=== PATIENT | female | born 1955 | race Caucasian/White ===

== ENCOUNTER → 2018-02-28 17:19 | Outpatient (CLI) | payer MEDICAID | END | disposition home or self-care (01) | LOC: D.MAMMO 15:30 | DX: Z12.31 Encounter for screening mammogram for malignant neoplasm of breast (principal) ==

== ENCOUNTER → 2018-11-06 08:42 | Outpatient (CLI) | payer MEDICAID | END | disposition home or self-care (01) | LOC: D.HCCARDIO 08:42 | DX: R06.02 Shortness of breath (principal) ==

== ENCOUNTER → 2018-12-02 08:02 | Outpatient (CLI) | payer MEDICAID | END | disposition home or self-care (01) | LOC: D.US 08:00 | PROVIDERS: ATTEND Internal Medicine Gastroenterology | DX: R10.9 Unspecified abdominal pain (principal) ==

== ENCOUNTER → 2018-12-15 09:25 | Outpatient (CLI) | payer MEDICAID | END | disposition home or self-care (01) | LOC: D.NM 09:25 | PROVIDERS: ATTEND Internal Medicine Gastroenterology | DX: R10.13 Epigastric pain (principal); K21.9 Gastro-esophageal reflux disease without esophagitis; R14.3 Flatulence; R14.0 Abdominal distension (gaseous) ==

== ENCOUNTER → 2019-04-29 09:41 | Outpatient (CLI) | payer MEDICAID | END | disposition home or self-care (01) | LOC: D.RAD 09:41 | PROVIDERS: ATTEND Internal Medicine Gastroenterology | DX: R13.10 Dysphagia, unspecified (principal); R19.4 Change in bowel habit ==

== ENCOUNTER 2019-06-18 09:41 | Outpatient (CLI) | payer MEDICAID | END 2019-06-18 10:55 | disposition home or self-care (01) | LOC: D.OPS 09:41 | PROVIDERS: ATTEND Surgery | DX: K21.9 Gastro-esophageal reflux disease without esophagitis (principal) ==

== ENCOUNTER → 2019-07-24 08:48 | Outpatient (CLI) | payer MEDICAID ==
[~2019-07-24 08:48] MED LIST: ACETAM; AMBIEN10 MG PO; CYCLOBENZAPRINE10 MG PO; EFFEXOR XR150 MG PO; FLAGYL500 MG; HYDROCOD; HYDROCODON-ACE1 EAC7 PO; LIPITOR10 MG PO; NAPROXEN250 MG PO; PROTONIX20 MG PO; PROTONIX40 MG PO; TOPROL XL25 MG PO; ZOFRAN4 MG PO; [UNRECOGNIZED DRUG - OTHER]; [UNRECOGNIZED DRUG - OTHER]
[2019-08-24 10:54] VITALS: BMI 34.4
== END | disposition home or self-care (01) ==
LOC: D.MRI 08:48
PROVIDERS: ATTEND Internal Medicine Gastroenterology
DX: K76.9 Liver disease, unspecified (principal); Z51.89 Encounter for other specified aftercare

== ENCOUNTER 2019-08-04 09:31 | Day surgery (SDC) | payer MEDICAID ==
[~2019-08-04] VITALS: Ht 162.6 cm; Wt 91.8 kg
[~2019-08-04 09:31] MED LIST changes: -HYDROCODON-ACE1 EAC7 PO; -PROTONIX20 MG PO
[2019-08-04] MEDS ORDERED: PROTONIX20 MG PO (10:10)
[2019-08-04 10:17] VITALS: BP 130/70; Ht 162.6 cm; Wt 91.8 kg
[2019-08-04 10:17] LABS: HEMATOCRIT 43.4 % (36.0-48.0); HEMOGLOBIN 14.3 g/dL (12-16); MCH 31.8 pg (26.0-34.0); MCHC 32.9 g/dL (31.0-37.0); MCV 96.7 fL (80.0-100.0); MEAN PLATELET VOLUME 9.7 fL (7.4-10.4); RBC 4.49 10x6/uL (4.00-5.40); RDW 13.1 % (11.5-14.5)
--- NOTE | 2019-08-04 11:15 | NUR ---
DR SOSA NOTIFIED AND REVIEWED PT'S BEHAVIOR AND ASSESSMENT RESULTS. PT IS A LOW RISK PER DR. SOSA. DR SOSA STATED TO GIVE RESOURCES TO PT AT TIME OF DISCHARGE. NO FURTHER ORDERS AT THIS TIME. RESOURCES REVIEWED WITH PT AND SHE VERBALIZED UNDERSTANDING. PT ADAMENTLY DENIES SUICIDAL THOUGHTS AND IS ABLE TO STATE MULTIPLE REASONS FOR LIVING. PT HAS A POSITIVE OUTLOOK FOR THE FUTURE.
--- NOTE | 2019-08-04 14:54 | NUR ---
1345 VSS. IV DC'D. CATHETER TIP INTACT. NO BLEEDING AT SITE. BANDAID APPLIED. 1400 PT WAITING TO TALK TO DR RONDON BEFORE DISCHARGE HOME. DISCHARGE INSTRUCTIONS GIVEN. PT VOICES UNDERSTANDING OF INSTRUCTIONS AND TO TAKE HER ANTIBIOTIC PRESCRIBED. PRESCRIPTION IN DISCHARGE PACKET
--- NOTE | 2019-08-05 15:04 | OP ---
PATIENT NAME: ALBARO FERRIS MEDICAL RECORD: [id number] :55 LOCATION:D.OPS ADMISSION DATE: SURGEON: JAMES RONDON MD DATE OF OPERATION: 08/04/2019 PREOPERATIVE DIAGNOSIS: Multiple colon polyps, tattooed. POSTOPERATIVE DIAGNOSIS: Two colon polyps, tattooed. PROCEDURES: 1. Total colonoscopy to cecum. 2. Colonic polypectomies times 2. SURGEON: James Rondon MD ADMINISTRATION MANAGER: None. BLOOD LOSS: Minimal. ANESTHESIA: IV sedation. COMPLICATIONS: None. The risks, possible complications and alternatives to the procedure were explained to the patient. She elects to proceed. Discussion specifically included, but was not limited to, bleeding requiring emergency reoperation and infection. ENDOSCOPIC COURSE: The patient was conveyed to endoscopy suite electively on 08/04/2019. IV sedation was induced by the anesthesia staff. The patient was placed in the Patino position. A digital rectal examination was performed. A colonoscope was inserted through the anus. It was easily advanced to the cecum. Upon withdrawal, I irrigated and aspirated extensively. Normal imaging as well as narrow band imaging were utilized. Two polyps were noted. These were each marked by a tattoo. Cold endoscopic biopsies were obtained. The remaining polypoid tissue was then ablated with the argon plasma hand drawer in. A retroflexed view was obtained in the rectum. The pullback was greater than a 15-minute pullback. The patient was then conveyed back to the post-endoscopy area. I will see her in the office in 2-3 weeks. I will plan for her next colonoscopy to take place in 2 years. TRANSINT:[id number] Voice Confirmation ID: [id number] DOCUMENT ID: [id number] JAMES RONDON MD at 1504 CC: [id number] DICTATION DATE: 08/04/19 1409 NUCLEAR ENGINEERING TECHNICIAN: 08/04/19 2324 [facility] 08/04/[address] [address]
== END 2019-08-04 14:17 | disposition home or self-care (01) ==
LOC: D.OPS 09:31
PROVIDERS: Anesthesiology; ATTEND Surgery
DX: K63.5 Polyp of colon (principal)

== ENCOUNTER 2019-08-24 05:28 | Inpatient (IN) | payer MEDICAID ==
[2019-08-24] VITALS (11 sets, daily range): BP systolic 144–180; BP diastolic 62–77; Ht 162.6 cm; Wt 90.9 kg
[~2019-08-24] VITALS: Ht 162.6 cm; Wt 90.9 kg
[~2019-08-24 05:28] MED LIST changes: +PROTONIX20 MG PO
[2019-08-24 06:54] LABS: HEMATOCRIT 42.1 % (36.0-48.0); HEMOGLOBIN 13.9 g/dL (12-16); MCH 31.9 pg (26.0-34.0); MCV 96.6 fL (80.0-100.0); MEAN PLATELET VOLUME 9.9 fL (7.4-10.4); RBC 4.36 10x6/uL (4.00-5.40); RDW 13.2 % (11.5-14.5)
--- NOTE | 2019-08-24 10:50 | NUR ---
RECEIVED TO ROOM 2228 VIA BED FROM PACU. A/O X3. FAMILY IN ROOM. SKIN INTACT WITHOUT REDNESS EXCEPT 6 SMALL INSERTION SITES TO ABDOMEN WHICH ARE CLEAN AND DRY. DENIES NEEDS. BP IS UP SLIGHTLY. WILL MONITOR.
--- NOTE | 2019-08-24 12:10 | NUR ---
C/O PAIN IN UPPER CHEST AREA. VSS. COLOR AND SKIN WNL. PROBABLY GAS FROM SURGERY. WILL MONITOR.
--- NOTE | 2019-08-24 14:14 | NUR ---
AMBULATED 50 FEET WITH MIN ASSIST OF ONE. DID VERY WELL, NO NAUSEA WITH ACTIVITY OR EATING A FEW BITES OF PUDDING. REPOSITIONED IN BED FOR COMFORT. DENIES NEEDS.
--- NOTE | 2019-08-24 18:37 | NUR ---
AMBULATED OVER 200 FEET WITH SBA. SAT ON TIOLET AFTER WALKING BUT DIDN'T URINATE. WILL MONITOR. NO C/O INCREASED PAIN OF NAUSEA WITH FOOD AND ACTIVITY. NO CHANGES NOTED
[2019-08-25 01:25] VITALS: BP 129/76
--- NOTE | 2019-08-25 03:09 | NUR ---
PT RESTING IN BED. EYES CLOSED. NO SIGNS OF DISTRESS. BREATHING EVEN AND UNLABORED. IV SITE LT FA DRESSING CLEAN DRY AND INTACT. NO SIGNS OF INFECTION. LUNG SOUNDS CLEAR. BOWEL SOUNDS ACTIVE. ABD LAP SITE CLEAN DRY AND INTACT. ABD DISTENDED. PT HAS PEED TWICE NOW. WILL CONTINUE PLAN OF CARE. CALL LIGHT IN REACH. BED LOWERED AND LOCKED. BED RAILS UPX2.
[2019-08-25 04:46] VITALS: BP 152/74
[2019-08-25 06:55] LABS: BASOPHILS 0.1 % (0-2); EOSINOPHILS 0.1 % (0-7); IMMATURE GRANULOCYTES 0.2 % (0-5); LYMPHOCYTES 22.9 % (15-50); MCH 31.7 pg (26.0-34.0); MCHC 32.5 g/dL (31.0-37.0); MCV 97.6 fL (80.0-100.0); MEAN PLATELET VOLUME 9.8 fL (7.4-10.4); MONOCYTES 7.1 % (2-11); NEUTROPHILS 69.6 % (40-80); PLATELET COUNT 337 10x3/uL (130-400); RDW 13.2 % (11.5-14.5)
--- NOTE | 2019-08-25 07:04 | NUR ---
I have reviewed this patient and I concur with the Shift Assessment completed by the Licensed Practical Nurse today this shift.
[2019-08-25 07:05] LABS: ALBUMIN 3.5 g/dL (3.4-5.0); ANION GAP 12.9 mmol/L (8-16); BILIRUBIN - TOTAL 0.45 mg/dL (0.2-1.3); CALCIUM 8.4 mg/dL (8.5-10.1); CARBON DIOXIDE 25.6 mmol/L (21.0-32.0); POTASSIUM - SERUM 4.5 mmol/L (3.5-5.1); PROTEIN - SERUM 6.7 g/dL (6.4-8.2)
[2019-08-25 07:09] LABS: WBC 10.1 10x3/uL (4.8-10.8)
[2019-08-25 08:53] VITALS: BP 181/77
[2019-08-25] MEDS ORDERED: HYDROCODON-ACE1 EAC7 PO (09:26)
--- NOTE | 2019-08-25 11:17 | OP ---
PATIENT NAME: ALBARO CHAMPAGNE MEDICAL RECORD: [id number] :55 LOCATION:D.MS [id number] ADMISSION DATE:08/24/19 SURGEON: LEISA RONDON MD DATE OF OPERATION: 08/24/2019 This is an surgical services assistant's note. I assisted Dr. JEN Cadrenas with laparoscopic hiatal hernia repair and a laparoscopic Roshan fundoplication. My involvement in the operation included insufflation of the abdomen. Inserting the Vini retractor. Inserting to the lateral most trocars. Retraction of tissue. Ligating and dividing the short gastrics. Mobilization of the greater curve of the stomach. Dissection of the left shay of the diaphragm from the esophagus. Division of half of the esophagophrenic ligament. Some of the blunt mediastinal dissection. Retraction of the suture material. Retraction of the esophagus to allow Dr. Cardenas to perform the hiatal hernia repair. Retraction of suture as Dr. Cardenas performed the Roshan fundoplication. Removal of some of the wasted adipose tissue. Running the camera for a period of time. Irrigating and aspiration. Closure of half of the incisions with Monocryls. Due to the complexity of the procedure, it was necessary to have 2 attending physicians present. TRANSINT:[id number] Voice Confirmation ID: [id number] DOCUMENT ID: [id number] LEISA RONDON MD at 1117 CC: [id number] DICTATION DATE: 08/24/19 1033 BANDER AND CELLOPHANER MACHINE HELPER: 08/24/19 1113 ADM IN [place] [id number] [place] [address]
--- NOTE | 2019-08-26 07:37 | MORECARE ---
CASE MANAGEMENT DISCHARGE SUMMARY PATIENT: ALBARO CHAMPAGNE UNIT: [id number] ADM DATE: 08/24/19 AGE: 63 : 55 SEX: F ROOM/BED: D.2228 AUTHOR: SHANNAN MOE PHYSICIAN: REFERRING PHYSICIAN: LEISA RONDON MD DATE OF SERVICE: 08/26/19 Discharge Plan Patient Name: ALBARO CHAMPAGNE Facility: [facility]:[place] : 1955 Planned Disposition: Anticipated Discharge Date: Discharge Date: 08/25/2019 Expected LOS: 0 Initial Reviewer: [email or web address] Initial Review Date: 08/26/2019 Generated: 08/26/19 8:37 am Patient Name: ALBARO CHAMPAGNE Page [id number] at 0737 All edits/amendments must be made on the electronic document DICTATION DATE: 08/26/1937 PANTS CUTTER: WIN 08/26/19 0737 RPT#: [id number] DC DATE:08/25/19 STATUS: DIS IN [facility] [address] [facility] [place] [address] END OF REPORT
== END 2019-08-25 12:03 | disposition home or self-care (01) | DRG 328 ==
LOC: D.OPS 05:28 → D.PAN 08:00 → D.MS 09:44 → D.OPS 10:19 → D.PAN 13:00 → EDSTATUS 13:00 → D.MS 08-25 12:03
PROVIDERS: Anesthesiology; Surgery; ADMIT Surgery; ATTEND Surgery
PROC: 0BQT4ZZ Repair Diaphragm, Percutaneous Endoscopic Approach (ICD-10-PCS; principal; 2019-08-24 08:00)
PROC: 0DV44ZZ Restriction of Esophagogastric Junction, Percutaneous Endoscopic Approach (ICD-10-PCS; 2019-08-24 08:00)
DX: K44.9 Diaphragmatic hernia without obstruction or gangrene (principal); K21.9 Gastro-esophageal reflux disease without esophagitis; I10 Essential (primary) hypertension; M19.90 Unspecified osteoarthritis, unspecified site

== ENCOUNTER 2019-10-01 09:00 | Outpatient (CLI) | payer MEDICAID ==
[2019-08-24 10:54] VITALS: BMI 34.4
[~2019-10-01 09:00] MED LIST changes: +HYDROCODON-ACE1 EAC7 PO
== END 2019-10-01 10:00 | disposition home or self-care (01) ==
LOC: D.MAMMO 09:00
PROVIDERS: ATTEND Family Medicine Adult Medicine
DX: Z12.31 Encounter for screening mammogram for malignant neoplasm of breast (principal)

== ENCOUNTER → 2019-10-13 14:00 | Outpatient (CLI) | payer MEDICAID ==
[2019-08-24 10:54] VITALS: BMI 34.4
== END | disposition home or self-care (01) ==
LOC: D.RAD 14:00 → D.MRI 15:30
PROVIDERS: ATTEND Orthopaedic Surgery
DX: M75.121 Complete rotator cuff tear or rupture of right shoulder, not specified as traumatic (principal)

== ENCOUNTER → 2020-02-11 09:09 | Outpatient (CLI) | payer MEDICAID ==
--- NOTE | 2019-10-13 15:03 | NUR ---
PT TIME OUT WAS PERFORMED AT [address] AND DR MACEDO FOR A RT SHLD ARTHROGRAM
[2019-11-06 07:39] VITALS: BMI 32.8
[~2020-02-11 09:09] MED LIST changes: +PERCOCET 10-321 EAC1 PO; +VISTARIL50 MG PO
[2020-02-11 10:15] LABS: BILIRUBIN - DIRECT 0.15 mg/dL (0.00-0.30); BILIRUBIN - INDIRECT 0.42 mg/dL (0.00-1.00); BILIRUBIN - TOTAL 0.57 mg/dL (0.2-1.3); PROTEIN - SERUM 7.2 g/dL (6.4-8.2)
== END | disposition home or self-care (01) ==
LOC: D.US 01-22 09:30
PROVIDERS: ATTEND Internal Medicine Gastroenterology
DX: K76.0 Fatty (change of) liver, not elsewhere classified (principal)

== ENCOUNTER 2020-12-07 08:49 | Day surgery (SDC) | payer MEDICARE, MEDICAID ==
[~2020-12-07] VITALS: Ht 162.6 cm; Wt 93.2 kg
[2020-12-07 09:22] LABS: BASOPHILS 0.5 % (0-2); EOSINOPHILS 3.5 % (0-7); HEMATOCRIT 43.4 % (36.0-48.0); HEMOGLOBIN 14.4 g/dL (12-16); IMMATURE GRANULOCYTES 0.2 % (0-5); LYMPHOCYTE ABS# 3.14 10x3/uL (1.18-3.74); LYMPHOCYTES 37.5 % (15-50); MCH 31.4 pg (26.0-34.0); MCHC 33.2 g/dL (31.0-37.0); MCV 94.8 fL (80.0-100.0); MEAN PLATELET VOLUME 9.1 fL (7.4-10.4); NEUTROPHIL ABS# 4.38 10x3/uL (1.56-6.13); NEUTROPHILS 52.3 % (40-80); PLATELET COUNT 315 10x3/uL (130-400); RBC 4.58 10x6/uL (4.00-5.40); RDW 13.1 % (11.5-14.5); WBC 8.4 10x3/uL (4.8-10.8)
[2020-12-07 09:31] LABS: ANION GAP 11.3 mmol/L (8-16); CALCIUM 8.8 mg/dL (8.5-10.1); CARBON DIOXIDE 25.1 mmol/L (21.0-32.0); CREATININE - SERUM 1.1 mg/dL (0.6-1.3); POTASSIUM - SERUM 4.4 mmol/L (3.5-5.1)
[2020-12-07] MEDS ORDERED: ABILIFY2 MG PO (10:28)
[2020-12-07] MEDS ORDERED: NAPROSYN500 MG PO (10:28)
[2020-12-07 10:37] VITALS: BP 149/58; Ht 162.6 cm; Wt 93.2 kg
--- NOTE | 2020-12-07 15:35 | NUR ---
1445 IV REMOVED AND INSTRUCTIONS GIVEN.
== END 2020-12-07 15:00 | disposition home or self-care (01) ==
LOC: D.OPS 08:49
PROVIDERS: Anesthesiology; ATTEND Surgery
DX: R13.10 Dysphagia, unspecified (principal); K21.9 Gastro-esophageal reflux disease without esophagitis; K29.60 Other gastritis without bleeding; R10.9 Unspecified abdominal pain; K44.9 Diaphragmatic hernia without obstruction or gangrene; I10 Essential (primary) hypertension; E78.5 Hyperlipidemia, unspecified; F41.8 Other specified anxiety disorders